=== PATIENT | male | born 1960 | race Caucasian/White ===

== ENCOUNTER 2017-12-05 17:04 | Emergency (ER) | payer MEDICAID ==
[~2017-12-05] VITALS: Ht 193 cm; Wt 91.6 kg
[2017-12-05 17:10] VITALS: Ht 193 cm; Wt 91.6 kg
[2017-12-05 17:47] VITALS: BP 164/103
== END 2017-12-05 17:47 | disposition home or self-care (01) ==
LOC: ED 17:04
DX: G89.29 Other chronic pain (principal); G56.22 Lesion of ulnar nerve, left upper limb; Z88.0 Allergy status to penicillin; V49.9XXA Car occupant (driver) (passenger) injured in unspecified traffic accident, initial encounter; Y93.89 Activity, other specified; Y92.89 Other specified places as the place of occurrence of the external cause; Y99.8 Other external cause status